=== PATIENT | female | born 2000 | race African-American/Black ===

== ENCOUNTER 2022-08-23 23:39 | Inpatient (IN) ==
[2022-08-24 00:21] LABS: Bacteria,Urine Occasional /HPF (Few); Mucus,Urine Occasional /LPF (Occasional); RBC,Urine 1 /HPF (0-4); Squamous Epithelial Cell,Urine Occasional /HPF (0-10)
[2022-08-24 00:22] LABS: Bilirubin,Urine Negative (Negative); Blood, Urine Moderate mg/dL (Negative); Glucose,Urine (UA) Negative (Negative); Ketones,Urine Negative (Negative); Nitrite,Urine Negative (Negative); Protein,Urine Negative (Negative); Urine Appearance Clear (Clear); Urine Color Yellow (Yellow); Urine Urobilinogen 0.2 eU/dL (<2.0); Urine pH 7.5 (4.5-8.0)
[2022-08-24] MEDS ORDERED: LACTATED RINGERS 250 ML IV ONE (00:42)
[2022-08-24] MEDS ORDERED: ONDANSETRON 4 MG/2 ML VIAL IV PRN (00:42)
[2022-08-24] MEDS ORDERED: LACTATED RINGERS 500 ML IV PRN (00:42)
[2022-08-24] MEDS ORDERED: miSOPROStoL 200 MCG TABLET RECTAL PRN (00:42)
[2022-08-24] MEDS ORDERED: TRANEXAMIC ACID 1,000 MG in SODIUM CHLORIDE 0.9% 100 ML IV PRN (00:42)
[2022-08-24] MEDS ORDERED: CARBOPROST TROMETHAMINE 250 MCG/ML AMP IM PRN (00:42)
[2022-08-24] MEDS ORDERED: OXYTOCIN/LR 20 UNIT/1,000 ML BAG IV ONE ×2 (00:42→14:57)
[2022-08-24] MEDS ORDERED: BUTORPHANOL 2 MG/ML VIAL IV PRN (00:42)
[2022-08-24] MEDS ORDERED: METHYLERGONOVINE 0.2 MG/1 ML AMP IM PRN (00:42)
[2022-08-24] MEDS ORDERED: MEPERIDINE 50 MG/1 ML VIAL IV PRN (00:42)
[2022-08-24] MEDS ORDERED: OXYTOCIN/LR 20 UNIT/1,000 ML BAG IV SCH (01:00)
[2022-08-24 01:07] LABS: Basophils # 0.1 10*3/uL (0.0-0.2); Basophils % 0.3 % (0.0-0.8); Eosinophils % 0.1 % (0.00-10.9); Hematocrit 34.4 VOL% (35.7-47.0); Immature Granulocytes % 0.9 %; Immature Granulocytes Absolute 0.17 #; Lymphocytes # 1.6 10*3/uL (1.4-4.0); Lymphocytes % 8.1 % (21.3-54.2); Mean Corpuscular Volume 81.7 FL (87-102); Mean Platelet Volume 12.6 FL (9.6-12.0); Monocytes % 5.1 % (1.7-12.7); Neutrophils % 85.5 % (38.7-73.9); Platelet Count 131 T/CUMM (130-400); Red Blood Count 4.21 MC/CUMM (3.8-5.5); Red Cell Distribution Width 14.8 % (9.3-17.3); White Blood Count 19.66 T/CUMM (4-12)
[2022-08-24 01:31] LABS: Alanine Aminotransferase 15 U/L (13-56); Albumin 2.7 G/DL (3.4-5.0); Alkaline Phosphatase 236 U/L (45-117); Aspartate Amino Transferase 24 U/L (0-37); Bilirubin,Total < 0.39 MG/DL (0.20-1.00); Blood Urea Nitrogen 5 MG/DL (7-18); Calcium 9.4 MG/DL (8.5-10.1); Carbon Dioxide 20 MMOL/L (21-32); Chloride 107 MMOL/L (98-107); Glucose 84 MG/DL (74-106); Osmolality,Calculated 268.8 MOS/KG (273-304); Potassium 3.9 MMOL/L (3.5-5.1); Sodium 137 MMOL/L (136-145); Total Protein 7.3 G/DL (6.4-8.2)
[2022-08-24 02:18] LABS: Lymphocytes 9 % (20-55); Total Cells Counted 100
[2022-08-24 02:21] LABS: Platelet Estimate Decreased
[2022-08-24] MEDS: LACTATED RINGERS 1,000 ML IV SCH ×2 (04:19→09:21)
[2022-08-24] MEDS ORDERED: hydrOXYzine HCL 25 MG/1 ML VIAL IM PRN (07:34)
[2022-08-24] MEDS ORDERED: FAMOTIDINE 20 MG/2 ML VIAL IV ONE (07:34)
[2022-08-24] MEDS ORDERED: ePHEDrine 50 MG/ML VIAL IV PRN (07:34)
[2022-08-24] MEDS ORDERED: CITRIC ACID/SODIUM CITRATE 30 ML UDCUP PO ONE (07:34)
[2022-08-24] MEDS ORDERED: diphenhydrAMINE 50 MG/1 ML VIAL IV PRN ×2 (07:34)
[2022-08-24] MEDS ORDERED: PROMETHAZINE 25 MG/1 ML VIAL IM ONE (07:34)
[2022-08-24] MEDS ORDERED: ONDANSETRON 4 MG/2 ML VIAL IV ONE (07:34)
[2022-08-24] MEDS ORDERED: NALOXONE 0.4 MG/ML VIAL IV PRN (07:34)
[2022-08-24] MEDS ORDERED: fentaNYL 2 MCG/ROPIV 0.2% EPID 100 ML EPIDURAL SCH (08:00)
[2022-08-24 10:45] LABS: Bilirubin,Urine Negative (Negative); Blood, Urine Negative (Negative); Glucose,Urine (UA) Negative (Negative); Ketones,Urine Negative (Negative); Nitrite,Urine Negative (Negative); Protein,Urine Negative (Negative); RBC,Urine <1 /HPF (0-4); Urine Appearance Clear (Clear); Urine Color Light Yellow (Yellow); Urine Specific Gravity 1.015 (1.001-1.035); Urine Urobilinogen 0.2 eU/dL (<2.0)
[2022-08-24 13:15] LABS: Cord Venous Blood HCO3 22.6 MMOL/L; Cord Venous Blood PCO2 48.9 MMHG; Cord Venous Blood PO2 22.9
[2022-08-24] MEDS ORDERED: ACETAMINOPHEN 325 MG TABLET PO PRN (14:57)
[2022-08-24] MEDS ORDERED: RHO(D) IMMUNE GLOBULIN 300 MCG SYRINGE IM ONE (14:57)
[2022-08-24] MEDS ORDERED: BISACODYL 10 MG SUPP RECTAL PRN (14:57)
[2022-08-24] MEDS ORDERED: WITCH HAZEL PADS 100/JAR TOP PRN (14:57)
[2022-08-24] MEDS ORDERED: oxyCODONE/ACETAMINOPHEN 5-325 MG TABLET PO PRN (14:57)
[2022-08-24] MEDS ORDERED: DIPH/TET/ACEL PERT BOOSTER VACCINE 0.5 ML VIAL IM ONE (14:57)
[2022-08-24] MEDS ORDERED: LANOLIN 50% CREAM 0.3 OZ TUBE TOP PRN (14:57)
[2022-08-24] MEDS ORDERED: MEASLES/MUMPS/RUBELLA VACCINE 0.5 ML VIAL SUBCUT ONE (14:57)
[2022-08-24] MEDS ORDERED: HYDROCORTISONE 2.5% RECTAL CREAM 30 GM TUBE TOP PRN (14:57)
[2022-08-24] MEDS ORDERED: BENZOCAINE 20%/MENTHOL 0.5% SPRAY 56 GM CAN TOP PRN (14:57)
[2022-08-24] MEDS: oxyCODONE/ACETAMINOPHEN 5-325 MG TABLET PO PRN (17:39)
[2022-08-24] MEDS: IBUPROFEN 800 MG TABLET PO PRN (17:40)
[2022-08-24] MEDS: DOCUSATE SODIUM 100 MG CAPSULE PO SCH (21:25)
[2022-08-25 03:32] LABS: Basophils # 0.1 10*3/uL (0.0-0.2); Basophils % 0.2 % (0.0-0.8); Eosinophils # 0.1 10*3/uL (0.0-0.87); Eosinophils % 0.2 % (0.00-10.9); Hematocrit 30.6 VOL% (35.7-47.0); Hemoglobin 9.8 GM/DL (12.0-16.0); Immature Granulocytes % 0.8 %; Immature Granulocytes Absolute 0.17 #; Lymphocytes # 1.7 10*3/uL (1.4-4.0); Lymphocytes % 7.6 % (21.3-54.2); Mean Corpuscular Volume 81.4 FL (87-102); Monocytes # 1.1 10*3/uL (0.11-0.8); Neutrophils % 86.2 % (38.7-73.9); Platelet Count 107 T/CUMM (130-400); Red Blood Count 3.76 MC/CUMM (3.8-5.5); Red Cell Distribution Width 14.9 % (9.3-17.3); White Blood Count 21.78 T/CUMM (4-12)
[2022-08-25 03:55] LABS: Lymphocytes 8 % (20-55); Microcytosis 1+; Total Cells Counted 100
[2022-08-25 03:56] LABS: Hypochromia Slight; Platelet Estimate Adequate
[2022-08-25] MEDS: IBUPROFEN 800 MG TABLET PO PRN ×2 (04:24→14:50)
[2022-08-25] MEDS: DOCUSATE SODIUM 100 MG CAPSULE PO SCH ×2 (09:43→21:17)
[2022-08-25] MEDS: oxyCODONE/ACETAMINOPHEN 5-325 MG TABLET PO PRN (14:50)
[2022-08-26 07:41] VITALS: BP 121/80
[2022-08-26] MEDS: DOCUSATE SODIUM 100 MG CAPSULE PO SCH (08:59)
[2022-08-26] MEDS ORDERED: FERROUS SULFATE 325 MG TABLET PO SCH (09:00)
== END 2022-08-26 13:10 | disposition home or self-care (01) | DRG 560 ==
LOC: N.LD 23:39 → N.OB 08-24 15:12
PROVIDERS: ADMIT Obstetrics & Gynecology; ATTEND Obstetrics & Gynecology